=== PATIENT | male | born 1995 | race African-American/Black ===

== ENCOUNTER 2021-02-08 10:39 | Day surgery (SDC) | payer BC, OTHER ==
[~2021-02-08] VITALS: Ht 188 cm; Wt 98.0 kg
[~2021-02-08 10:39] MED LIST: BENTYL 10 MG CA10 MG PO; ZINC50 M3 PO
[2021-02-08 11:40] VITALS: BP 141/80
[2021-02-08 16:57] VITALS: BP 141/80
--- NOTE | 2021-02-14 19:29 | O ---
[address] [address] OPERATIVE REPORT Name: LOVE BAKER [id number] Admission: 02/08/21 Attend Phys: Truman Regan MD Discharge: 02/08/21 Date of : 89 Report #: [id number] THIS REPORT FOR: cc: Nemesio Barahona MD, James H. MD McCabe,Truman Lemus MD ~ DATE OF SERVICE: 02/08/2021 SERVICE: Orthopedics. FACILITY: [facility]. SURGEON: Truman Regan MD TUBERCULOSIS SPECIALIST: Kyleigh Valderrama NP INDICATIONS FOR TUBERCULOSIS SPECIALIST: Extremity positioning, arthroscope management, graft preparation, assistance with the reconstruction. PREOPERATIVE DIAGNOSES: 1. Right knee anterior cruciate ligament tear. 2. Right knee lateral meniscus tear. 3. Right knee medial meniscocapsular junction injury. POSTOPERATIVE DIAGNOSES: 1. Right knee anterior cruciate ligament tear. 2. Right knee lateral meniscus tear. 3. Healed right knee medial meniscocapsular injury. PROCEDURES PERFORMED: 1. Right knee arthroscopically assisted ACL reconstruction with quadriceps tendon autograft. 2. Right knee lateral meniscus repair. 3. Right knee arthroscopic limited chondroplasty of the medial femoral condyle. COMPLICATIONS: None. DRAINS: None. SPECIMENS: None. ANESTHESIA: General with regional. FINDINGS: 1. Quad tendon ACL with cortical fixation on femur and tibia. 2. Full thickness 12 mm peripheral vertical longitudinal tear of the posterior [address] [place] [address] OPERATIVE REPORT Name: LOVE BAKER Room #: [facility]..#: [id number] Admission: 02/08/21 Attend Phys: Truman Regan MD Discharge: 02/08/21 Date of : 89 Report #: [id number] horn of the lateral meniscus, repaired with single meniscal tape suture in a cerclage fashion. 3. Small inner rim white-white radial tear, treated with partial meniscectomy of the mid body of the lateral meniscus. 4. Healed medial meniscocapsular injury, requiring no intervention. 5. Partial thickness articular cartilage lesion of the lateral aspect of the medial femoral condyle, treated with limited chondroplasty. 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 He was indicated surgical treatment as he wishes to return to athletics. Risks, benefits, alternatives and indications for surgery discussed with him in detail. Risks include but not limited to pain, bleeding, infection, injuring nerves or blood vessels, persistent pain despite surgical intervention, failure of any repairs or reconstructions, progression of preexisting chondral injury, stiffness, need for further surgery as well as complications related to anesthesia. Despite the risks, he wished to proceed. DESCRIPTION OF PROCEDURE: After right lower extremity was correctly identified in the preoperative holding area as the operative extremity, the patient underwent regional nerve block. He was then taken to the operating room where general anesthesia was induced without complications. He was padded appropriately. Prophylactic antibiotics were administered at appropriate time. Tourniquet was applied to right leg. Right lower extremity was then prepped and draped in standard sterile fashion. Timeout procedure performed. Esmarch was used, tourniquet inflated to 300 mmHg. A 1-inch incision was made based off the superior pole of the patella. Full-thickness skin flaps were developed and then a quadriceps tendon autograft was harvested in a standard fashion. The graft was 10.5 mm on the femoral side x 70 mm in length and 9.5 mm on the tibial side when it was finally harvested and prepared with Arthrex quad tape system. The harvest site of the tendon was closed with a running locking #1 Vicryl suture. Standard anterolateral viewing portal was established followed by anteromedial working portal. Diagnostic arthroscopy revealed the above findings. A shaver was used to perform a synovectomy in the anterior knee. ACL had avulsed off the femoral side primarily and it scarred into the PCL. This was dissected free and then the ACL stump was resected. The medial compartment was carefully evaluated. He had a known meniscocapsular junction injury based on the MRI, but we had treated this conservatively for approximately 5-6 weeks since his injury in hopes that it would have healed and on probing, the medial meniscus was stable and there was no evidence of any meniscocapsular injury. 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 This was treated with a limited chondroplasty. There were no [address] [address] OPERATIVE REPORT Name: LOVE BAKER Room #: DEP [facility] Eric#: [id number] Admission: 02/08/21 Attend Phys: Truman Regan MD Discharge: 02/08/21 Date of : 89 Report #: [id number] full-thickness lesions. The leg was placed in a [id number] position, the lateral meniscus was evaluated. There were 2 lateral meniscus tears, the first was an inner rim mid body radial tear that was partial thickness in terms of the radial width, approximately 20% of the width. This was treated with simple debridement of the inner rim to stable margins. The second tear was on the posterior horn near the root, but not involving the root. This was a full-thickness longitudinal tear that was at the red-white zone or perhaps the red-red zone. Shaver was used to debride through the tear site on the top and the bottom and then it was quite amenable to a [id number] repair with a cerclage suture, so I used Arthrex meniscal Scorpion with a meniscal tape, passed it in a mattress suture fashion with the first limb more peripheral and the second limb more central and then tied the knot and compressing across the tear in a perpendicular fashion. The suture tail was cut. Meniscus was probed and found to be stable. We turned our attention towards the ACL. The lateral wall of the notch was prepared and then the Arthrex FlipCutter device was used to create a 10.5 x 25 mm socket in the femur and then we created a 9.5 x 30 mm socket in the tibia and then the graft was passed into the femur, seated securely. We confirmed that the button was sitting on the lateral cortex with the arthroscope and then back passed the graft into the tibia, ensuring that it was well balanced and actually passed the graft before tightening the femoral button completely. After the graft was passed into the tibia, the button was applied and the knee was placed into extension. A reverse Dennys maneuver was performed and then the tibial TightRope was tensioned followed by the femoral again and then we took the knee through a cyclic range of motion to eliminate any graft creep and then we tensioned the construct, then performed a repeated Dennys and pivot shift maneuvers to confirm that he was stable and then once again tightened both TightRopes. Sutures were tied back upon themselves for reinforcement over the buttons on both sides. Final photographs were taken. Suture tails were cut. Arthroscopic effusion was drained. Instruments removed. Portal sites were closed. The harvest site was closed with 2-0 Vicryl followed by Monocryl. Sterile dressing was applied followed by compression stocking, a PolarCare device and knee immobilizer. POSTOPERATIVE PLAN: Weightbearing as tolerated with full range of motion as tolerated without restriction. We will wean him out of the brace first and then off the crutches second when he has restored normal gait pattern. <ELECTRONICALLY SIGNED> By: Truman Regan MD 02/14/21 [id number] Truman Regan MD /nt
== END 2021-02-08 18:40 | disposition home or self-care (01) ==
LOC: TBA 10:39 → OR 10:39 → TBA 10:40 → OR 12:11
PROVIDERS: ATTEND Orthopaedic Surgery Sports Medicine
DX: S83.281A Other tear of lateral meniscus, current injury, right knee, initial encounter (principal); S83.511A Sprain of anterior cruciate ligament of right knee, initial encounter; Z98.890 Other specified postprocedural states; Z79.899 Other long term (current) drug therapy; Z20.822 Contact with and (suspected) exposure to COVID-19; X58.XXXA Exposure to other specified factors, initial encounter; Y93.89 Activity, other specified; Y92.89 Other specified places as the place of occurrence of the external cause; Y99.8 Other external cause status
CPT/HCPCS: 50010; 50101; 50386; 50405; 52313; 56524; 56525; 56527; 57103; 57180; 58297; 58352; 58484; 58485; 58486; 58589; 58682; 58771; 58875; 58876; 58877; 59022; 59024; 62110; 62900; 70005